=== PATIENT | male | born 1945 | race Caucasian/White ===

== ENCOUNTER → 2020-08-30 14:37 | Outpatient (BNVA) | payer MEDICARE, OTHER, SELFPAY | PROVIDERS: Family Provider Family Medicine; PCP Family Medicine; Visit Provider Internal Medicine | DX: R53.83 Other fatigue (principal); I10 Essential (primary) hypertension; E66.9 Obesity, unspecified; R53.1 Weakness; Z79.899 Other long term (current) drug therapy | CPT/HCPCS: 80053; 80061; 82607; 82746; 83036; 84443; 85025; G0103 ==

== ENCOUNTER 2020-09-03 01:01 | Observation (INO) | payer MEDICARE, OTHER, SELFPAY ==
[2020-09-03] VITALS (18 sets, daily range): BP systolic 148–243; BP diastolic 56–103; PULSE 55–88; RESP 15–24; TEMP 36.3–37; O2SAT 93–98; BMI 35.5
--- NOTE | 2020-09-03 01:19 | XRR_ITS ---
PROCEDURE INFORMATION: Exam: XR Chest, 1 View Exam date and time: 09/03/2020 1:42 AM Age: 75 years old Clinical indication: Other: HTN crisis TECHNIQUE: Imaging protocol: XR of the chest Views: 1 view. COMPARISON: No relevant prior studies available. FINDINGS: Lungs: Unremarkable. No consolidation. Pleural space: No pneumothorax or suggestion of pleural fluid. Heart/Mediastinum: Mild cardiomegaly. Vasculature: Aortic elongation. Bones/joints: No suggestion of acute bony disease. XR/XR chest 1V portable [id number] IMPRESSION: No acute findings. Mild cardiomegaly.
--- NOTE | 2020-09-03 01:19 | CTR_ITS ---
PROCEDURE INFORMATION: Exam: CT Head Without Contrast Exam date and time: 09/03/2020 1:42 AM Age: 75 years old Clinical indication: Other: TIA s/s one week ago TECHNIQUE: Imaging protocol: Computed tomography of the head without contrast. Radiation optimization: All CT scans at this facility use at least one of these dose optimization techniques: automated exposure control; mA and/or kV adjustment per patient size (includes targeted exams where dose is matched to clinical indication); or iterative reconstruction. COMPARISON: No relevant prior studies available. RADIATION DOSE METRICS: Total DLP (mGy-cm): 743.27 FINDINGS: Brain: No apparent abnormal density in the brain. No enlargement of the supratentorial subarachnoid spaces. No hemorrhage. Cerebral ventricles: Magna cisterna magna. Minimal prominence of the 4th ventricle. Mild enlargement of the 3rd and lateral ventricles. Bones/joints: Unremarkable. No acute fracture. Paranasal sinuses: Visualized sinuses unremarkable. Mastoid air cells: Visualized mastoids unremarkable. Vasculature: Arterial calcifications. Soft tissues: Unremarkable. CT/CT head wo con* [id number] IMPRESSION: No acute findings. Radiation Dose CTDIVOL = (mGy): DLP = 743.27 (mGy-cm)
--- NOTE | 2020-09-03 01:23 | W.ED.GENADLT ---
Documented by User: MIRA Lyman 09/03/20 01:25 HPI - General Adult General: Chief complaint: General Medical Stated complaint: high blood pressure Time Seen by Provider: 09/03/20 01:19 History of Present Illness: HPI narrative: Patient comes in complaining about hypertension. 76 went to bed he just 1 feel good decide check his blood pressure because Dr. Acevedo raise his blood pressure medicine at 100 mg losartan daily. His blood pressure is up about 240/104. Had a TIA possibly week ago had some right facial droop and also has a limp now he states. Said he did not feel poorly. Had some lab work done by Dr. Acevedo. Reviewing that shows that his sugar was 248 on a nonfasting sample. TSH slightly up. Patient denies chest pain shortness of breath. TIAsymptoms have improved. He is scheduled for an MRI. MD complaint: Hypertension Onset (ago): day(s) Associated symptoms: Deny chest pain, dyspnea, headache(s), nausea, rash or vomiting Review of Systems Const: Denies: fever(s), chills or body aches Eyes: Denies: change in vision or blurry vision ENMT: Denies: throat pain or nasal congestion Card: Reports: other (Increased blood pressure not coming down new medicine); Denies: chest pain or dyspnea on exertion Resp: Denies: dyspnea, productive cough or non-productive cough GI: Denies: abdominal pain, nausea or vomiting : Denies: difficulty urinating Musc: Denies: extremity pain Skin/Breast: Denies: rash Neuro: Reports: difficulty walking and difficulty communicating thoughts; Denies: headache(s) Psych: Denies: anxiety or depression Holden/Lymph: Denies: easy bruising PFSH ED PFSH: Family History (Updated 08/30/20 @ 11:[address]) Grandmother Cancer Diabetes Brother Diabetes Father Heart disease Mother Heart disease Social History (Updated 08/30/20 @ 11:[address]) Smoking and tobacco status: former smoker Alcohol intake: current Alcohol intake frequency: holidays/special occasions only Marital status: Number of children: 2 service: Yes History of recent travel: No Physical Exam Const: COMMON NORMALS: no acute distress, average body habitus and patient oriented x3 HENMT: COMMON NORMALS: normocephalic HEAD & SCALP: normal to inspection and normocephalic FACE & SINUS: normal facial exam Eye: COMMON NORMALS: conjunctivae normal GENERAL EYE: appearance normal, both eyes and all related structures CONJUNCTIVA: Yes conjunctivae normal Neck/C-Spine: COMMON NORMALS: no JVD Chest: COMMONS NORMALS: normal inspection of the chest Resp: COMMON NORMALS: normal respiratory effort and clear to auscultation bilaterally AUSCULTATION: clear to auscultation bilaterally Cardio: COMMON NORMALS: no JVD, regular rate and regular rhythm RATE: regular rate RHYTHM: regular rhythm GI: COMMON NORMALS: Normal to inspection, nondistended, normoactive bowel sounds present Extremity: COMMON NORMALS: normal to inspection and full ROM Neuro: COMMON NORMALS: patient oriented x3 Course Vital Signs: Vital signs: Vital Signs Temperature 97.3 F L 09/03/20 01:05 Pulse Rate 58 L 09/03/20 04:30 Respiratory Rate 17 09/03/20 04:30 Blood Pressure 178/86 09/03/20 04:30 Pulse Oximetry 97 09/03/20 04:30 MDM - General Adult Lab Data: Labs: Lab Results 09/03/20 09/03/20 09/03/20 Range/Units 01:22 01:22 01:22 WBC 9.0 (4.0-10.0) 10^3/ uL RBC 4.96 (4.1-5.3) 10^6/u L Hgb 14.1 (11.7-16.6) g/dL Hct 43.8 (42.0-52.0) % MCV 88.3 (80-94) fL MCH 28.4 (28.0-34.0) pg MCHC 32.2 (30.0-36.0) g/dL RDW 12.8 (12.1-15.1) % Plt Count 295 (130-400) 10^3/c mm MPV 8.6 (7.4-10.4) fL Neut % (Auto) 57.7 % Lymph % (Auto) 31.8 % Owsley % (Auto) 7.5 % Eos % (Auto) 1.9 % Baso % (Auto) 0.8 % Neut # (Auto) 5.18 (1.8-7.7) 10^3/u L Lymph # (Auto) 2.9 (0.8-4.8) 10^3/u L Owsley # (Auto) 0.7 (0.2-0.9) 10^3/u L Eos # (Auto) 0.2 (0.0-0.8) 10^3/u L Baso # (Auto) 0.1 (0.0-0.1) 10^3/u L Nucleated RBC % (a uto) 0 % Nucleated RBCs # 0.0 /100WBC PT 14.10 (12.1-14.9) SECO NDS INR 1.05 (0.8-1.2) Sodium 133 L (136-145) mmol/L Potassium 4.2 (3.5-5.1) mmol/L Chloride 97 L (98-107) mmol/L Carbon Dioxide 26 (22-29) mmol/L Anion Gap 14.2 (5-19) BUN 24 H (8-23) mg/dL Creatinine 1.2 (0.7-1.2) mg/dL GFR Calculation Not Reportable Glucose 220 H (65-115) mg/dL POC Glucose (70-110) mg/dL Estimat Average Gl ucose Hemoglobin A1c (4.0-6.0) % Calculated Osmolal ity 287 (285-295) mOsm/k g Calcium 9.7 (8.5-10.5) mg/dL Magnesium 2.2 (1.7-2.3) mg/dL Total Bilirubin 0.3 (0.15-1.2) mg/dL AST 15 (0-40) U/L ALT 17 (0-41) U/L Alkaline Phosphata se 88 (40-130) IU/L Troponin T Baselin e (0-15) ng/L Troponin T 120 Min [place] (0-15) ng/L Delta Troponin T (0-10) ABS# NT-Pro-B Natriuret Pep 28 (0-125) pg/mL Total Protein 7.5 (6.6-8.7) g/dL Albumin 4.2 (3.5-5.2) g/dL Globulin 3.3 (1.3-4.6) g/dL Urine Color (Yellow) Urine Appearance (CLEAR) Urine pH (5-7) Ur Specific Gravit y (1.005-1.030) Urine Protein (Negative) Urine Glucose (UA) (Normal) Urine Ketones (Negative) Urine Blood (Negative) Urine Nitrate (Negative) Urine Bilirubin (Negative) Urine Urobilinogen (Negative) mg/dL Ur Leukocyte Ivelisse ase (Negative) 09/03/20 09/03/20 09/03/20 Range/Units 01:22 01:22 01:29 WBC (4.0-10.0) 10^3/ uL RBC (4.1-5.3) 10^6/u L Hgb (11.7-16.6) g/dL Hct (42.0-52.0) % MCV (80-94) fL MCH (28.0-34.0) pg MCHC (30.0-36.0) g/dL RDW (12.1-15.1) % Plt Count (130-400) 10^3/c mm MPV (7.4-10.4) fL Neut % (Auto) % Lymph % (Auto) % Owsley % (Auto) % Eos % (Auto) % Baso % (Auto) % Neut # (Auto) (1.8-7.7) 10^3/u L Lymph # (Auto) (0.8-4.8) 10^3/u L Owsley # (Auto) (0.2-0.9) 10^3/u L Eos # (Auto) (0.0-0.8) 10^3/u L Baso # (Auto) (0.0-0.1) 10^3/u L Nucleated RBC % (a uto) % Nucleated RBCs # /100WBC PT (12.1-14.9) SECO NDS INR (0.8-1.2) Sodium (136-145) mmol/L Potassium (3.5-5.1) mmol/L Chloride (98-107) mmol/L Carbon Dioxide (22-29) mmol/L Anion Gap (5-19) BUN (8-23) mg/dL Creatinine (0.7-1.2) mg/dL GFR Calculation Glucose (65-115) mg/dL POC Glucose 193 H (70-110) mg/dL Estimat Average Gl ucose 189 Hemoglobin A1c 8.2 H (4.0-6.0) % Calculated Osmolal ity (285-295) mOsm/k g Calcium (8.5-10.5) mg/dL Magnesium (1.7-2.3) mg/dL Total Bilirubin (0.15-1.2) mg/dL AST (0-40) U/L ALT (0-41) U/L Alkaline Phosphata se (40-130) IU/L Troponin T Baselin e 24 H (0-15) ng/L Troponin T 120 Min [place] (0-15) ng/L Delta Troponin T (0-10) ABS# NT-Pro-B Natriuret Pep (0-125) pg/mL Total Protein (6.6-8.7) g/dL Albumin (3.5-5.2) g/dL Globulin (1.3-4.6) g/dL Urine Color (Yellow) Urine Appearance (CLEAR) Urine pH (5-7) Ur Specific Gravit y (1.005-1.030) Urine Protein (Negative) Urine Glucose (UA) (Normal) Urine Ketones (Negative) Urine Blood (Negative) Urine Nitrate (Negative) Urine Bilirubin (Negative) Urine Urobilinogen (Negative) mg/dL Ur Leukocyte Ivelisse ase (Negative) 09/03/20 09/03/20 Range/Units 02:00 03:28 WBC (4.0-10.0) 10^3/ uL RBC (4.1-5.3) 10^6/u L Hgb (11.7-16.6) g/dL Hct (42.0-52.0) % MCV (80-94) fL MCH (28.0-34.0) pg MCHC (30.0-36.0) g/dL RDW (12.1-15.1) % Plt Count (130-400) 10^3/c mm MPV (7.4-10.4) fL Neut % (Auto) % Lymph % (Auto) % Owsley % (Auto) % Eos % (Auto) % Baso % (Auto) % Neut # (Auto) (1.8-7.7) 10^3/u L Lymph # (Auto) (0.8-4.8) 10^3/u L [place]wsley # (Auto) (0.2-0.9) 10^3/u L Eos # (Auto) (0.0-0.8) 10^3/u L Baso # (Auto) (0.0-0.1) 10^3/u L Nucleated RBC % (a uto) % Nucleated RBCs # /100WBC PT (12.1-14.9) SECO NDS INR (0.8-1.2) Sodium (136-145) mmol/L Potassium (3.5-5.1) mmol/L Chloride (98-107) mmol/L Carbon Dioxide (22-29) mmol/L Anion Gap (5-19) BUN (8-23) mg/dL Creatinine (0.7-1.2) mg/dL GFR Calculation Glucose (65-115) mg/dL POC Glucose (70-110) mg/dL Estimat Average Gl ucose Hemoglobin A1c (4.0-6.0) % Calculated Osmolal ity (285-295) mOsm/k g Calcium (8.5-10.5) mg/dL Magnesium (1.7-2.3) mg/dL Total Bilirubin (0.15-1.2) mg/dL AST (0-40) U/L ALT (0-41) U/L Alkaline Phosphata se (40-130) IU/L Troponin T Baselin e (0-15) ng/L Troponin T 120 Min [place] 22.40 H (0-15) ng/L Delta Troponin T -1.60 L (0-10) ABS# NT-Pro-B Natriuret Pep (0-125) pg/mL Total Protein (6.6-8.7) g/dL Albumin (3.5-5.2) g/dL Globulin (1.3-4.6) g/dL Urine Color Yellow (Yellow) Urine Appearance Clear (CLEAR) Urine pH 5 (5-7) Ur Specific Gravit y 1.015 (1.005-1.030) Urine Protein Neg (Negative) Urine Glucose (UA) 2+ (Normal) Urine Ketones Negative (Negative) Urine Blood Neg (Negative) Urine Nitrate Negative (Negative) Urine Bilirubin Neg (Negative) Urine Urobilinogen Norm (Negative) mg/dL Ur Leukocyte Ivelisse ase Negative (Negative) Discharge Plan Discharge Patient Disposition: Placed in Observation Clinical Impression: Right sided weakness Hypertension Qualifiers: Hypertension type: unspecified Qualified Code(s): I10 - Essential (primary) hypertension Coding Level of Care Code ED [facility] for Chg Fwd Exam Comprehensive Documented by User: Connor Guerra, 09/03/20 04:55 HPI - General Adult General: Chief complaint: General Medical Stated complaint: high blood pressure Time Seen by Provider: 09/03/20 01:19 PFS ED PFSH: Family History (Updated 08/30/20 @ 11:54 by DINORA Ureña) Grandmother Cancer Diabetes Brother Diabetes Father Heart disease Mother Heart disease Social History (Updated 08/30/20 @ 11:55 by DINORA Ureña) Smoking and tobacco status: former smoker Alcohol intake: current Alcohol intake frequency: holidays/special occasions only Marital status: Number of children: 2 service: Yes History of recent travel: No Course Consultations: Consultation #1: tash Time: 04:54 Vital Signs: Vital signs: Vital Signs Temperature 97.3 F L 09/03/20 01:05 Pulse Rate 58 L 09/03/20 04:30 Respiratory Rate 17 09/03/20 04:30 Blood Pressure 178/86 09/03/20 04:30 Pulse Oximetry 97 09/03/20 04:30 MDM - General Adult MDM Narrative: Medical decision making narrative: 75-year-old gentleman received in checkout from MIRA Bright. I have seen the patient as well, and agree with his history, evaluation, and work-up. This patient has what appears to be mild right lower extremity weakness with a foot slap/foot drop, mild right sided facial droop following an episode last week. He is scheduled for an MRI next week. He has a new diagnosis of hypertension, and is up to 100 mg of losartan daily for the past 2 days. He had a hypertensive episode at home. His blood pressure has been significantly elevated here, requiring labetalol as well as amlodipine to improve. Currently blood pressure 178/84, heart rate 62, saturations 96% on room air. His symptoms are a week old plus. He has no increase in symptoms. His CT head does not show an acute infarct. He has had no prior work-up for CVA in the past. Interestingly, his hemoglobin A1c is 8.2 with no prior history of diabetes as well. He will be observed, CT angio of the head and neck, and control of his blood pressure. Any further testing needed. Lab Data: Labs: Lab Results 09/03/20 09/03/20 09/03/20 Range/Units 01:22 01:22 01:22 WBC 9.0 (4.0-10.0) 10^3/ uL RBC 4.96 (4.1-5.3) 10^6/u L Hgb 14.1 (11.7-16.6) g/dL Hct 43.8 (42.0-52.0) % MCV 88.3 (80-94) fL MCH 28.4 (28.0-34.0) pg MCHC 32.2 (30.0-36.0) g/dL RDW 12.8 (12.1-15.1) % Plt Count 295 (130-400) 10^3/c mm MPV 8.6 (7.4-10.4) fL Neut % (Auto) 57.7 % Lymph % (Auto) 31.8 % [place] % (Auto) 7.5 % Eos % (Auto) 1.9 % Baso % (Auto) 0.8 % Neut # (Auto) 5.18 (1.8-7.7) 10^3/u L Lymph # (Auto) 2.9 (0.8-4.8) 10^3/u L [place] # (Auto) 0.7 (0.2-0.9) 10^3/u L Eos # (Auto) 0.2 (0.0-0.8) 10^3/u L Baso # (Auto) 0.1 (0.0-0.1) 10^3/u L Nucleated RBC % (a uto) 0 % Nucleated RBCs # 0.0 /100WBC PT 14.10 (12.1-14.9) SECO NDS INR 1.05 (0.8-1.2) Sodium 133 L (136-145) mmol/L Potassium 4.2 (3.5-5.1) mmol/L Chloride 97 L (98-107) mmol/L Carbon Dioxide 26 (22-29) mmol/L Anion Gap 14.2 (5-19) BUN 24 H (8-23) mg/dL Creatinine 1.2 (0.7-1.2) mg/dL GFR Calculation Not Reportable Glucose 220 H (65-115) mg/dL POC Glucose (70-110) mg/dL Estimat Average Gl ucose Hemoglobin A1c (4.0-6.0) % Calculated Osmolal ity 287 (285-295) mOsm/k g Calcium 9.7 (8.5-10.5) mg/dL Magnesium 2.2 (1.7-2.3) mg/dL Total Bilirubin 0.3 (0.15-1.2) mg/dL AST 15 (0-40) U/L ALT 17 (0-41) U/L Alkaline Phosphata se 88 (40-130) IU/L Troponin T Baselin e (0-15) ng/L Troponin T 120 Min [place] (0-15) ng/L Delta Troponin T (0-10) ABS# NT-Pro-B Natriuret Pep 28 (0-125) pg/mL Total Protein 7.5 (6.6-8.7) g/dL Albumin 4.2 (3.5-5.2) g/dL Globulin 3.3 (1.3-4.6) g/dL Urine Color (Yellow) Urine Appearance (CLEAR) Urine pH (5-7) Ur Specific Gravit y (1.005-1.030) Urine Protein (Negative) Urine Glucose (UA) (Normal) Urine Ketones (Negative) Urine Blood (Negative) Urine Nitrate (Negative) Urine Bilirubin (Negative) Urine Urobilinogen (Negative) mg/dL Ur Leukocyte Ivelisse ase (Negative) 09/03/20 09/03/20 09/03/20 Range/Units 01:22 01:22 01:29 WBC (4.0-10.0) 10^3/ uL RBC (4.1-5.3) 10^6/u L Hgb (11.7-16.6) g/dL Hct (42.0-52.0) % MCV (80-94) fL MCH (28.0-34.0) pg MCHC (30.0-36.0) g/dL RDW (12.1-15.1) % Plt Count (130-400) 10^3/c mm MPV (7.4-10.4) fL Neut % (Auto) % Lymph % (Auto) % [place] % (Auto) % Eos % (Auto) % Baso % (Auto) % Neut # (Auto) (1.8-7.7) 10^3/u L Lymph # (Auto) (0.8-4.8) 10^3/u L [place] # (Auto) (0.2-0.9) 10^3/u L Eos # (Auto) (0.0-0.8) 10^3/u L Baso # (Auto) (0.0-0.1) 10^3/u L Nucleated RBC % (a uto) % Nucleated RBCs # /100WBC PT (12.1-14.9) SECO NDS INR (0.8-1.2) Sodium (136-145) mmol/L Potassium (3.5-5.1) mmol/L Chloride (98-107) mmol/L Carbon Dioxide (22-29) mmol/L Anion Gap (5-19) BUN (8-23) mg/dL Creatinine (0.7-1.2) mg/dL GFR Calculation Glucose (65-115) mg/dL POC Glucose 193 H (70-110) mg/dL Estimat Average Gl ucose 189 Hemoglobin A1c 8.2 H (4.0-6.0) % Calculated Osmolal ity (285-295) mOsm/k g Calcium (8.5-10.5) mg/dL Magnesium (1.7-2.3) mg/dL Total Bilirubin (0.15-1.2) mg/dL AST (0-40) U/L ALT (0-41) U/L Alkaline Phosphata se (40-130) IU/L Troponin T Baselin e 24 H (0-15) ng/L Troponin T 120 Min [place] (0-15) ng/L Delta Troponin T (0-10) ABS# NT-Pro-B Natriuret Pep (0-125) pg/mL Total Protein (6.6-8.7) g/dL Albumin (3.5-5.2) g/dL Globulin (1.3-4.6) g/dL Urine Color (Yellow) Urine Appearance (CLEAR) Urine pH (5-7) Ur Specific Gravit y (1.005-1.030) Urine Protein (Negative) Urine Glucose (UA) (Normal) Urine Ketones (Negative) Urine Blood (Negative) Urine Nitrate (Negative) Urine Bilirubin (Negative) Urine Urobilinogen (Negative) mg/dL Ur Leukocyte Ivelisse ase (Negative) 09/03/20 09/03/20 Range/Units 02:00 03:28 WBC (4.0-10.0) 10^3/ uL RBC (4.1-5.3) 10^6/u L Hgb (11.7-16.6) g/dL Hct (42.0-52.0) % MCV (80-94) fL MCH (28.0-34.0) pg MCHC (30.0-36.0) g/dL RDW (12.1-15.1) % Plt Count (130-400) 10^3/c mm MPV (7.4-10.4) fL Neut % (Auto) % Lymph % (Auto) % [place] % (Auto) % Eos % (Auto) % Baso % (Auto) % Neut # (Auto) (1.8-7.7) 10^3/u L Lymph # (Auto) (0.8-4.8) 10^3/u L [place] # (Auto) (0.2-0.9) 10^3/u L Eos # (Auto) (0.0-0.8) 10^3/u L Baso # (Auto) (0.0-0.1) 10^3/u L Nucleated RBC % (a uto) % Nucleated RBCs # /100WBC PT (12.1-14.9) SECO NDS INR (0.8-1.2) Sodium (136-145) mmol/L Potassium (3.5-5.1) mmol/L Chloride (98-107) mmol/L Carbon Dioxide (22-29) mmol/L Anion Gap (5-19) BUN (8-23) mg/dL Creatinine (0.7-1.2) mg/dL GFR Calculation Glucose (65-115) mg/dL POC Glucose (70-110) mg/dL Estimat Average Gl ucose Hemoglobin A1c (4.0-6.0) % Calculated Osmolal ity (285-295) mOsm/k g Calcium (8.5-10.5) mg/dL Magnesium (1.7-2.3) mg/dL Total Bilirubin (0.15-1.2) mg/dL AST (0-40) U/L ALT (0-41) U/L Alkaline Phosphata se (40-130) IU/L Troponin T Baselin e (0-15) ng/L Troponin T 120 Min [place] 22.40 H (0-15) ng/L Delta Troponin T -1.60 L (0-10) ABS# NT-Pro-B Natriuret Pep (0-125) pg/mL Total Protein (6.6-8.7) g/dL Albumin (3.5-5.2) g/dL Globulin (1.3-4.6) g/dL Urine Color Yellow (Yellow) Urine Appearance Clear (CLEAR) Urine pH 5 (5-7) Ur Specific Gravit y 1.015 (1.005-1.030) Urine Protein Neg (Negative) Urine Glucose (UA) 2+ (Normal) Urine Ketones Negative (Negative) Urine Blood Neg (Negative) Urine Nitrate Negative (Negative) Urine Bilirubin Neg (Negative) Urine Urobilinogen Norm (Negative) mg/dL Ur Leukocyte Ivelisse ase Negative (Negative) Discharge Plan Discharge Patient Disposition: Placed in Observation Clinical Impression: Right sided weakness Hypertension Qualifiers: Hypertension type: unspecified Qualified Code(s): I10 - Essential (primary) hypertension Coding Level of Care Code ED [facility] for [facility] Fwd Exam Comprehensive
[2020-09-03] MEDS: amlodipine 10 mg Tablet PO ×2 (01:31→08:09)
[2020-09-03 01:33] LABS: Glucose Point of Care 193 mg/dL (70-110)
[2020-09-03 01:33] LABS: Basophils # 0.1 10^3/uL (0.0-0.1); Basophils % 0.8 %; Eosinophils # 0.2 10^3/uL (0.0-0.8); Eosinophils % 1.9 %; Hematocrit 43.8 % (42.0-52.0); Hemoglobin 14.1 g/dL (11.7-16.6); Lymphocytes # 2.9 10^3/uL (0.8-4.8); Lymphocytes % 31.8 %; Mean Corpuscular HGB Conc 32.2 g/dL (30.0-36.0); Mean Corpuscular Hemoglobin 28.4 pg (28.0-34.0); Mean Corpuscular Volume 88.3 fL (80-94); Mean Platelet Volume 8.6 fL (7.4-10.4); Monocytes # 0.7 10^3/uL (0.2-0.9); Monocytes % 7.5 %; Neutrophils # 5.18 10^3/uL (1.8-7.7); Neutrophils % 57.7 %; Nucleated Red Blood Cells % 0 %; Platelet Count 295 10^3/cmm (130-400); Red Blood Count 4.96 10^6/uL (4.1-5.3); Red Cell Distribution Width 12.8 % (12.1-15.1)
[2020-09-03] MEDS: labetalol 5 mg/mL SDV 20mL 20 MG IVP (01:34)
[2020-09-03 01:38] LABS: INR 1.05 (0.8-1.2)
[2020-09-03] MEDS: sodium chloride 0.9% 1,000 ML 75 ML IV (01:38)
[2020-09-03 01:46] LABS: Troponin(5th) Baseline 24 ng/L (0-15)
[2020-09-03 01:55] LABS: Alanine Aminotransferase 17 U/L (0-41); Albumin Level 4.2 g/dL (3.5-5.2); Alkaline Phosphatase 88 IU/L (40-130); Anion Gap 14.2 (5-19); Aspartate Amino Transferase 15 U/L (0-40); Blood Urea Nitrogen 24 mg/dL (8-23); Calcium 9.7 mg/dL (8.5-10.5); Carbon Dioxide 26 mmol/L (22-29); Chloride 97 mmol/L (98-107); Creatinine Clr Calc Pharmacy 70.9133; Globulin 3.3 g/dL (1.3-4.6); Glucose 220 mg/dL (65-115); Magnesium 2.2 mg/dL (1.7-2.3); NT Pro B Type Natriuretic Pept 28 pg/mL (0-125); Osmolality Calculated 287 mOsm/kg (285-295); Potassium 4.2 mmol/L (3.5-5.1); Sodium 133 mmol/L (136-145); Total Bilirubin 0.3 mg/dL (0.15-1.2); Total Protein 7.5 g/dL (6.6-8.7)
[2020-09-03 02:19] LABS: Add Urine Microscopic? NO
[2020-09-03 02:21] LABS: Bilirubin Urine Neg (Negative); Blood Urine Neg (Negative); Glucose Urine UA 2+ (Normal); Ketones Urine Negative (Negative); Leukocyte Esterase Urine Negative (Negative); Nitrate Urine Negative (Negative); Protein Urine Neg (Negative); Specific Gravity, Urine 1.015 (1.005-1.030); Urine Appearance Clear (CLEAR); Urine Color Yellow (Yellow); Urobilinogen Urine Norm (Negative); pH Urine 5 (5-7)
[2020-09-03 03:01] LABS: Estmated Average Glucose 189; Hemoglobin A1C 8.2 % (4.0-6.0)
--- NOTE | 2020-09-03 04:01 | ECG_ITS ---
[facility] Test Date: 2020-09-03 Pat Name: Demond Pastrana Department: Room: Gender: Male Risk Specialist: : 1945 Requested By: Rick Evans Order Number: [id number] Calix MD: Caitlyn Rico M.D. Measurements Intervals [place] Rate: 56 P: 10 WV: 162 QRS: -21 QRSD: 91 T: 89 QT: 399 QTc: 386 Interpretive Statements SINUS BRADYCARDIA BORDERLINE LEFT AXIS DEVIATION [QRS AXIS < -20] LOW QRS VOLTAGE IN PRECORDIAL LEADS [QRS DEFLECTION < 1.0 mV IN CHEST LEADS] NONSPECIFIC T-WAVE ABNORMALITY No previous ECG available for comparison Electronically Signed On 09-04-2020 21:15:12 [employer] by Caitlyn Rico M.D. [email or web address]
--- NOTE | 2020-09-03 04:26 | P.HP_ITS ---
Providers/Chief Complaint Primary Care Provider: Juanjose Alvarado MD Chief Complaint: high blood pressure History of Present Illness Demond Pastrana is a 75 year old male who does not have significant past medical history presented today for high blood pressure. Patient is stating that last Friday he started experiencing right-sided facial droop, right arm numbness and right lower extremity weakness for which he saw Dr. Acevedo who diagnosed him with TIA started on high-dose aspirin and started losartan for blood pressure. Initially he was taking 50 mg of losartan which was increased to 100 mg because of hypertensive episodes, lowest blood pressure at home was 150s millimeters mercury, today his systolic blood pressure was well above 1 200mmhg?where he presented to the hospital. Patient is stating that his right-sided facial droop and right arm numbness has improved but he is still experiencing some gait ataxia. No aspiration or choking on food, no fever shortness of breath, chest pain, fever. He does not smoke or drink alcohol on daily basis. He plays golf and enjoys daily activities but does not do any vigorous/physical activities. Diagnosis in the ER revealed hypertensive urgency, 243/103 which improved with 20 mg of labetalol and 10 mg of amlodipine, at the time my evaluation 178/86 blood pressure. Negative delta troponin, abnormal hemoglobin A1c, TSH, lipid profile. Review of Systems Const: Reports: fatigue; Denies: fever(s) Eyes: Denies: change in vision ENMT: Denies: throat pain Card: Denies: chest pain Resp: Denies: dyspnea GI: Denies: abdominal pain : Denies: flank pain Musc: Reports: muscle cramps and muscle weakness; Denies: neck pain Skin/Breast: Denies: rash Neuro: Reports: weakness in extremities and difficulty walking; Denies: headache(s) Psych: Denies: anxiety Endo: Denies: polyuria Holden/Lymph: Denies: easy bruising All/Imm: Denies: urticaria Medications/Allergies Home Medications Medication Instructions Recorded Confirmed Last Taken Type aspirin 325 mg tablet 325 mg PO DAILY 08/30/20 08/30/20 Unknown History ibuprofen 200 mg tablet 200 mg PO .prn PRN tab 08/30/20 08/30/20 Unknown History losartan 50 mg tablet 100 mg PO DAILY #90 tab 09/01/20 Unknown Rx Allergies Allergy/AdvReac Type Severity Reaction Status Date / Time succinylcholine Allergy Severe drained Verified 08/30/20 11:49 everything out of his muscles PFSH Acute PFSH: Medical History (Updated 09/03/20 @ 05:03 by Idania Arellano MD) Hernia Surgical History (Updated 09/03/20 @ 05:03 by Idania Arellano MD) History of hip replacement [place] teeth extracted Family History (Updated 08/30/20 @ 11:54 by DINORA Ureña) Grandmother Cancer Diabetes Brother Diabetes Father Heart disease Mother Heart disease Social History (Updated 08/30/20 @ 11:55 by DINORA Ureña) Smoking and tobacco status: former smoker Alcohol intake: current Alcohol intake frequency: holidays/special occasions only Marital status: Number of children: 2 service: Yes History of recent travel: No Vitals/I&O/Wt Last Vital Signs Temp 97.3 F L 09/03/20 01:05 Pulse 58 L 09/03/20 04:00 Resp 22 H 09/03/20 04:00 BP 158/73 09/03/20 04:00 Pulse Ox 96 09/03/20 04:00 Weight last 48 hrs Weight 115.666 kg Physical Exam Narrative: EXAM NARRATIVE: Very pleasant elderly male Appears stated age, morbidly obese NIH 2 Right-sided facial droop, gait ataxia Muscle strength 3/5 lower extremities, ankle joint, hip extension, handgrip No cerebellar signs Awake alert oriented x3 GCS 15, speech is normal Appropriate mood and affect S1, S2 sinus rhythm no signs of heart failure Abdomen soft distended bowel sound present Bilateral breath sounds without acute respiratory distress no adventitious rhonchi or audible wheezing Low symmetry no edema gangrene ulcer visceral obesity EOMI, PERRLA Data : 09/03/20 01:22 09/03/20 01:22 A&P Assessment and plan (1) Obesity: Status: Acute (2) Fatigue: Status: Acute (3) Right sided weakness: Status: Acute (4) Hypertension: Status: Acute Qualifiers: Hypertension type: unspecified Qualified Code(s): I10 - Essential (primary) hypertension (5) Hypertensive urgency: Status: Acute (6) New onset type 2 diabetes mellitus: Status: Acute (7) TIA (transient ischemic attack): Status: Acute (8) Morbid obesity: Status: Acute (9) Metabolic syndrome X: Status: Acute Additional A&P Information Metabolic X syndrome Morbid obesity, hypertension, diabetes, abnormal TSH, visceral obesity Abnormal TSH, hemoglobin A1c 8.5, hypertensive urgency Patient counseled on lifestyle modification For new onset diabetes I will start him on insulin in the hospital, at the time of discharge he will need Metformin and GLP-1 analog ideally to help him lose weight Hypertensive urgency responded well to labetalol amlodipine in the ER, I would add hydrochlorothiazide and amlodipine along with losartan for grade 3 hypertension TIA Continue aspirin high-dose, will add Plavix and high-dose statins We will request CT head and neck and MRI in the morning Full code Consistent carb diet DVT prophylaxis Attestations Medical Necessity Statement*: Anticipating discharge in less than 48 hours currently need work-up for TIA, need adjustment of medication for hypertension and newly diagnosed type 2 diabetes Time Spent in Patient Care: (>than 50% of time spent in counselling and/or direct pt care on unit) . 45mins Coding Level of Care Code Acute Devulcanizer Loader for Delia Fwd Diagnoses Obesity E66.9 Fatigue R53.83 Right sided weakness R53.1 Hypertension I10 Hypertension type: unspecified Hypertensive urgency I16.0 New onset type 2 diabetes mellitus E11.9 TIA (transient ischemic attack) G45.9 Morbid obesity E66.01 Metabolic syndrome X E88.81
--- NOTE | 2020-09-03 04:28 | CTR_ITS ---
PROCEDURE INFORMATION: Exam: CT Angiography Head With Contrast Exam date and time: 09/03/2020 4:54 AM Age: 75 years old Clinical indication: Weakness; Additional info: Right sided weakness TECHNIQUE: Imaging protocol: Computed tomography angiography of the head with intravenous contrast. 3D rendering (Not supervised by radiologist): MIP and/or 3D reconstructed images were created by the technologist. Radiation optimization: All CT scans at this facility use at least one of these dose optimization techniques: automated exposure control; mA and/or kV adjustment per patient size (includes targeted exams where dose is matched to clinical indication); or iterative reconstruction. Contrast material: VISI 320; Contrast volume: 95 ml; Contrast route: INTRAVENOUS (IV); COMPARISON: CT head wo con* [id number] 09/03/2020 1:48 AM RADIATION DOSE METRICS: Total DLP (mGy-cm): 2754.53 FINDINGS: ANTERIOR CIRCULATION: Right internal carotid artery: Unremarkable. Intracranial segment patent with no significant stenosis. No aneurysm. Right middle cerebral artery: Unremarkable. No occlusion or significant stenosis. No aneurysm. Right anterior cerebral artery: Hypoplastic A1 segment of the right anterior cerebral artery. No stenosis or occlusion of this artery. No aneurysm. Left internal carotid artery: Unremarkable. Intracranial segment patent with no significant stenosis. No aneurysm. Left middle cerebral artery: Unremarkable. No occlusion or significant stenosis. No aneurysm. Left anterior cerebral artery: Unremarkable. No occlusion or significant stenosis. No aneurysm. POSTERIOR CIRCULATION: Right vertebral artery: Unremarkable. No occlusion or significant stenosis. No aneurysm. Left vertebral artery: Unremarkable. No occlusion or significant stenosis. No aneurysm. Basilar artery: Unremarkable. No occlusion or significant stenosis. No aneurysm. Right posterior cerebral artery: Right posterior communicating artery associated with absence of the P1 segment of the right PANTOGRAPH SETTER. No occlusion of or stenosis in the right PANTOGRAPH SETTER. No aneurysm. Left posterior cerebral artery: Moderate stenosis in the P1 segment of the left posterior cerebral artery. No significant stenosis elsewhere in this artery. No aneurysm. Veins: Major venous sinuses patent. Brain: No abnormal enhancement in the brain. Magna cisterna magna again evident. Cerebral ventricles: Continued prominence/dilatation of the ventricles. Mastoid air cells: Mastoids still clear. Paranasal sinuses: Interval inclusion of the area of the mucous retention cyst in the inferior right maxillary sinus and the minimal mucosal thickening in each inferior maxillary sinus. Still no air-fluid levels in the sinuses. Bones/joints: Unremarkable. No acute fracture. Soft tissues: Unremarkable. IMPRESSION: 1. 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 No significant stenosis in or occlusion of the other major head arteries. 2. Chronic sinus disease now visible as detailed above. PROCEDURE INFORMATION: Exam: CT Angiography Neck With Contrast Exam date and time: 09/03/2020 4:54 AM Age: 75 years old Clinical indication: Weakness; Additional info: Right sided weakness TECHNIQUE: Imaging protocol: Computed tomography angiography of the neck with intravenous contrast. 3D rendering (Not supervised by radiologist): MIP and/or 3D reconstructed images were created by the technologist. Radiation optimization: All CT scans at this facility use at least one of these dose optimization techniques: automated exposure control; mA and/or kV adjustment per patient size (includes targeted exams where dose is matched to clinical indication); or iterative reconstruction. Contrast material: VISI 320; Contrast volume: 95 ml; Contrast route: INTRAVENOUS (IV); COMPARISON: CT head wo con* [id number] 09/03/2020 1:48 AM RADIATION DOSE METRICS: Total DLP (mGy-cm): 2754.53 FINDINGS: Right common carotid artery: No stenosis. No dissection or occlusion. Right internal carotid artery: No stenosis of the extracranial segment. No dissection or occlusion. Right external carotid artery: Moderate stenosis of the very proximal right ECA. Right vertebral artery: No stenosis. No dissection or occlusion. Left common carotid artery: No stenosis. No dissection or occlusion. Left internal carotid artery: Minimal to mild stenosis of the origin of the left ICA. Left external carotid artery: [id number] stenosis of the proximal left ECA. Left vertebral artery: Suspicion of at least a moderate to marked stenosis of the origin of the left vertebral artery from the aortic arch. No stenosis elsewhere in this artery. Bones/joints: Degeneration of several discs and multiple facet joints in the cervical spine. No canal stenosis greater than the mild stenosis at C5-C6. Soft tissues: Mediastinal lipomatosis. No significant soft tissue swelling. Lymph nodes: Calcified nodes in the left hilum and AP window. Lungs: Calcified granuloma in the left upper lobe. CT/CT angio headne* [id number] IMPRESSION: 1. At least a moderate to marked stenosis of the origin of the left vertebral artery from the aortic arch. Other arterial findings detailed above. 2. Degenerative disease in the cervical spine. Other findings detailed above. REFERENCES: NASCET CRITERIA. The degree of internal carotid artery stenosis is based on NASCET criteria. Normal is no stenosis. Mild is less than 50% stenosis. Moderate is 50-69% stenosis. Severe is 70% to 99% stenosis. Total occlusion is no detectable patent lumen. Radiation Dose CTDIVOL = (mGy): DLP = 2754.53~2754.53 (mGy-cm)
[2020-09-03 05:11] LABS: Free T4 Free Thyroxine 1.05 ng/dL (0.82-1.77)
[2020-09-03] MEDS: iodixanol 320 mg/mL 100mL Btl IV (06:14)
[2020-09-03 06:41] LABS: Glucose Point of Care 199 mg/dL (70-110)
[2020-09-03 07:02] LABS: Chol HDL Ratio 4.58 mg/dL (1.0-5.00); Cholesterol 151 mg/dL (0-200); HDL Cholesterol 33 mg/dL (60-100); LDL Cholesterol Calculated 91 mg/dL (50-129); LDL HDL Ratio 2.76 RATIO (0.00-3.22); Triglycerides 135 mg/dL (0-150)
--- NOTE | 2020-09-03 07:19 | ECG_ITS ---
[facility] Test Date: 2020-09-03 Pat Name: Demond Pastrana Department: Room: 277 Gender: Male Seed Analyst: : 1945 Requested By: Rick Evans Order Number: [id number] Yogi MD: Caitlyn Rico M.D. Measurements Intervals Alvin Rate: 69 P: 54 CA: 165 QRS: -26 QRSD: 99 T: 68 QT: 384 QTc: 413 Interpretive Statements SINUS RHYTHM WITH FREQUENT VENTRICULAR PREMATURE COMPLEXES BORDERLINE LEFT AXIS DEVIATION [QRS AXIS < -20] LOW QRS VOLTAGE IN PRECORDIAL LEADS [QRS DEFLECTION < 1.0 mV IN CHEST LEADS] NONSPECIFIC T-WAVE ABNORMALITY Compared to ECG 09/03/2020 03:26:56 Ventricular premature complex(es) now present Sinus bradycardia no longer present T-wave abnormality still present Electronically Signed On 09-04-2020 21:12:59 ANDROID FRAMEWORK DEVELOPER by Caitlyn Rico M.D. [email or web address].[facility].[employer]/store/OM/[id number]
[2020-09-03] MEDS: atorvastatin 40 mg Tablet 80 MG PO (08:09)
[2020-09-03] MEDS: aspirin 325 mg Tablet PO (08:09)
[2020-09-03] MEDS: losartan 50 mg Tablet 100 MG PO (08:10)
[2020-09-03] MEDS: clopidogrel 75 mg Tablet PO (08:10)
[2020-09-03] MEDS: hydroCHLOROthiazide 25 mg Tablet 12.5 MG PO (08:10)
[2020-09-03 11:17] LABS: Glucose Point of Care 230 mg/dL (70-110)
--- NOTE | 2020-09-03 15:11 | PM.PN ---
Subjective Subjective: Interval history: Reports feeling better. Denies headache. Denies focal muscle weakness or sensory loss. Denies problems with gait or speech. No chest pain or palpitations. No nausea or vomiting. Medications: Reviewed: Yes Medication Review Details: Generic Name Dose Route Start Last Admin Trade Name Pancho PRN Reason Stop Dose Admin Amlodipine Besylat e 10 mg 09/03/20 09:00 09/03/20 08:09 Amlodipine 10 Mg Tablet PO 10 mg DAILY EDWARDO Administration Atorvastatin Calci um 80 mg 09/03/20 09:00 09/03/20 08:09 Atorvastatin 40 Mg Tablet PO 80 mg DAILY EDWARDO Administration Clopidogrel Bisulf ate 75 mg 09/03/20 09:00 09/03/20 08:10 Clopidogrel 75 M g Tablet PO 75 mg DAILY EDWARDO Administration Sodium Chloride 1,000 mls @ 75 ml s/hr 09/03/20 01:30 09/03/20 06:52 Sodium Chloride 0.9% IV 0 mls/hr .[id number] EDWARDO Infusion Insulin Aspart 0 unit 09/03/20 08:00 09/03/20 11:46 Insulin Aspart 1 00 Unit/1 Ml SUBCUT 8 unit WM&BEDTIME EDWARDO Administration Protocol Losartan Potassium 100 mg 09/03/20 09:00 09/03/20 08:10 Losartan 50 Mg T ablet PO 100 mg DAILY EDWARDO Administration Vitals/I&O/Wt Last Vital Signs Temp 98.6 F 09/03/20 11:00 Pulse 88 09/03/20 11:00 Resp 20 H 09/03/20 11:00 BP 177/79 09/03/20 11:00 Pulse Ox 93 09/03/20 11:00 09/03/20 09/03/20 09/03/20 06:59 14:59 22:59 Intake Total 392.5 / 392.5 600 / 600 Output Total 175 / 175 Balance 217.5 / 217.5 600 / 600 Weight last 48 hrs Weight 115.666 kg Physical Exam Narrative: EXAM NARRATIVE: Awake alert oriented x4. No acute distress. Mood and affect are appropriate. Skin is warm and dry. Moist mucous membranes. Normal speech. No facial asymmetry. Eyes PERRLA, extraocular muscles are intact Neck supple. No JVD Lungs clear bilaterally. No respiratory distress Heart S1, S2, regular Abdomen soft, obese, nontender, bowel sounds are present Extremities no edema cyanosis or calf tenderness bilaterally Neuro examination is nonfocal. Cerebellar tests seem to be within normal range. Data : 09/03/20 01:22 09/03/20 01:22 Other Labs: Laboratory Results WBC 9.0 10^3/uL (4.0-10.0) 09/03/20 01:22 RBC 4.96 10^6/uL (4.1-5.3) 09/03/20 01:22 Hgb 14.1 g/dL (11.7-16.6) 09/03/20 01:22 Hct 43.8 % (42.0-52.0) 09/03/20 01:22 MCV 88.3 fL (80-94) 09/03/20 01: MCH 28.4 pg (28.0-34.0) 09/03/20 01: MCHC 32.2 g/dL (30.0-36.0) 09/03/20 01: RDW 12.8 % (12.1-15.1) 09/03/20 01:22 Plt Count 295 10^3/cmm (130-400) 09/03/20 01:22 MPV 8.6 fL (7.4-10.4) 09/03/20 01: Neut % (Auto) 57.7 % 09/03/20 01: Lymph % (Auto) 31.8 % 09/03/20 01:22 Sutter % (Auto) 7.5 % 09/03/20 01:22 Eos % (Auto) 1.9 % 09/03/20 01: Baso % (Auto) 0.8 % 09/03/20 01:22 Neut # (Auto) 5.18 10^3/uL (1.8-7.7) 09/03/20 01:22 Lymph # (Auto) 2.9 10^3/uL (0.8-4.8) 09/03/20 01:22 Sutter # (Auto) 0.7 10^3/uL (0.2-0.9) 09/03/20 01:22 Eos # (Auto) 0.2 10^3/uL (0.0-0.8) 09/03/20 01:22 Baso # (Auto) 0.1 10^3/uL (0.0-0.1) 09/03/20 01:22 Nucleated RBC % (auto) 0 % 09/03/20 01:22 Nucleated RBCs # 0.0 /100WBC 09/03/20 01:22 PT 14.10 SECONDS (12.1-14.9) 09/03/20 01:22 INR 1.05 (0.8-1.2) 09/03/20 01:22 Sodium 133 mmol/L (136-145) L 09/03/20 01:22 Potassium 4.2 mmol/L (3.5-5.1) 09/03/20 01:22 Chloride 97 mmol/L (98-107) L 09/03/20 01:22 Carbon Dioxide 26 mmol/L (22-29) 09/03/20 01:22 Anion Gap 14.2 (5-19) 09/03/20 01:22 BUN 24 mg/dL (8-23) H 09/03/20 01:22 Creatinine 1.2 mg/dL (0.7-1.2) 09/03/20 01:22 GFR Calculation Not Reportable 09/03/20 01:22 Glucose 220 mg/dL (65-115) H 09/03/20 01:22 POC Glucose 230 mg/dL (70-110) H 09/03/20 11:06 Estimat Average Glucose 189 09/03/20 01:22 Hemoglobin A1c 8.2 % (4.0-6.0) H 09/03/20 01:22 Calculated Osmolality 287 mOsm/kg (285-295) 09/03/20 01:22 Calcium 9.7 mg/dL (8.5-10.5) 09/03/20 01:22 Magnesium 2.2 mg/dL (1.7-2.3) 09/03/20 01:22 Total Bilirubin 0.3 mg/dL (0.15-1.2) 09/03/20 01:22 AST 15 U/L (0-40) 09/03/20 01:22 ALT 17 U/L (0-41) 09/03/20 01:22 Alkaline Phosphatase 88 IU/L (40-130) 09/03/20 01:22 Troponin T Baseline 24 ng/L (0-15) H 09/03/20 01:22 Troponin T 120 Minute 22.40 ng/L (0-15) H 09/03/20 03:28 Delta Troponin T -1.60 ABS# (0-10) L 09/03/20 03:28 NT-Pro-B Natriuret Pep 28 pg/mL (0-125) 09/03/20 01:22 Total Protein 7.5 g/dL (6.6-8.7) 09/03/20 01:22 Albumin 4.2 g/dL (3.5-5.2) 09/03/20 01:22 Globulin 3.3 g/dL (1.3-4.6) 09/03/20 01:22 Triglycerides 135 mg/dL (0-150) 09/03/20 03:28 Cholesterol 151 mg/dL (0-200) 09/03/20 03:28 LDL Cholesterol, Calc 91 mg/dL (50-129) 09/03/20 03:28 HDL Cholesterol 33 mg/dL (60-100) L 09/03/20 03:28 LDL/HDL Ratio 2.76 RATIO (0.00-3.22) 09/03/20 03:28 Cholesterol/HDL Ratio 4.58 mg/dL (1.0-5.00) 09/03/20 03:28 Free T4 1.05 ng/dL (0.82-1.77) 09/03/20 03:28 Urine Color Yellow (Yellow) 09/03/20 02:00 Urine Appearance Clear (CLEAR) 09/03/20 02:00 Urine pH 5 (5-7) 09/03/20 02:00 Ur Specific [place] 1.015 (1.005-1.030) 09/03/20 02:00 Urine Protein Neg (Negative) 09/03/20 02:00 Urine Glucose (UA) 2+ (Normal) 09/03/20 02:00 Urine Ketones Negative (Negative) 09/03/20 02:00 Urine Blood Neg (Negative) 09/03/20 02:00 Urine Nitrate Negative (Negative) 09/03/20 02:00 Urine Bilirubin Neg (Negative) 09/03/20 02:00 Urine Urobilinogen Norm mg/dL (Negative) 09/03/20 02:00 Ur Leukocyte Esterase Negative (Negative) 09/03/20 02:00 Impressions Chest X-Ray 09/03/20 01:19 IMPRESSION: No acute findings. Mild cardiomegaly. Head CT 09/03/20 01:19 IMPRESSION: No acute findings. Radiation Dose CTDIVOL = (mGy): DLP = 743.27 (mGy-cm) Head/Neck CTA 09/03/20 04:28 IMPRESSION: 1. At least a moderate to marked stenosis of the origin of the left vertebral artery from the aortic arch. Other arterial findings detailed above. 2. Degenerative disease in the cervical spine. Other findings detailed above. REFERENCES: NASCET CRITERIA. The degree of internal carotid artery stenosis is based on NASCET criteria. Normal is no stenosis. Mild is less than 50% stenosis. Moderate is 50-69% stenosis. Severe is 70% to 99% stenosis. Total occlusion is no detectable patent lumen. Radiation Dose CTDIVOL = (mGy): DLP = 2754.53~2754.53 (mGy-cm) A&P Assessment and plan (1) Obesity: Status: Acute (2) Fatigue: Status: Acute (3) Right sided weakness: Status: Acute (4) Hypertension: Status: Acute Qualifiers: Hypertension type: unspecified Qualified Code(s): I10 - Essential (primary) hypertension (5) Hypertensive urgency: Status: Acute (6) New onset type 2 diabetes mellitus: Status: Acute (7) TIA (transient ischemic attack): Status: Acute (8) Morbid obesity: Status: Acute (9) Metabolic syndrome X: Status: Acute Additional A&P Information Metabolic X syndrome Morbid obesity, hypertension, diabetes, abnormal TSH, visceral obesity Abnormal TSH, hemoglobin A1c 8.5, hypertensive urgency Patient counseled on lifestyle modification For new onset diabetes I will start him on insulin in the hospital, at the time of discharge he will need Metformin and GLP-1 analog ideally to help him lose weight Hypertensive urgency responded well to labetalol amlodipine in the ER, I would add hydrochlorothiazide and amlodipine along with losartan for grade 3 hypertension TIA Continue aspirin high-dose, will add Plavix and high-dose statins We will request CT head and neck and MRI in the morning Full code Consistent carb diet DVT prophylaxis [place] Suspected TIA/CVA. Currently on dual antiplatelet therapy. MRI is pending. Peripheral vascular disease, vertebral artery disease. Conservative management. Outpatient follow-up and possible referral. Continue statin for dyslipidemia. Hypertensive emergency. Currently stabilized. We will continue adjusting his maintenance medications and as needed coverage. Uncontrolled diabetes. We will start Januvia. We will add Metformin prior to discharge. We will continue insulin sliding scale for now. Possible hypothyroidism. We will start small dose of Synthroid. Will need outpatient follow-up and adjustments. DVT prophylaxis. Teds and SCDs. The plan of care was discussed with the patient. He verbalized understanding and agreement. Attestations Medical Necessity Statement*: Probably discharge in the morning. MRI is pending Coding Level of Care Code Acute Superintendent Marine for Chg Fwd Diagnoses Obesity E66.9 Fatigue R53.83 Right sided weakness R53.1 Hypertension I10 Hypertension type: unspecified Hypertensive urgency I16.0 New onset type 2 diabetes mellitus E11.9 TIA (transient ischemic attack) G45.9 Morbid obesity E66.01 Metabolic syndrome X E88.81
[2020-09-03 16:58] LABS: Glucose Point of Care 183 mg/dL (70-110)
[2020-09-03] MEDS: magnesium oxide 400 mg tablet PO (17:51)
[2020-09-03 21:01] LABS: Glucose Point of Care 237 mg/dL (70-110)
[2020-09-04 04:28] VITALS: BP 130/71; PULSE 67; RESP 20; TEMP 36.6; O2SAT 94
[2020-09-04] MEDS: levothyroxine 150 mcg Tablet 75 MCG PO (05:23)
[2020-09-04 05:31] LABS: Basophils % 0.5 %; Eosinophils # 0.2 10^3/uL (0.0-0.8); Eosinophils % 2.3 %; Hematocrit 39.7 % (42.0-52.0); Hemoglobin 12.9 g/dL (11.7-16.6); Lymphocytes # 1.7 10^3/uL (0.8-4.8); Lymphocytes % 23.5 %; Mean Corpuscular HGB Conc 32.5 g/dL (30.0-36.0); Mean Corpuscular Hemoglobin 28.7 pg (28.0-34.0); Mean Corpuscular Volume 88.2 fL (80-94); Mean Platelet Volume 8.8 fL (7.4-10.4); Monocytes # 0.6 10^3/uL (0.2-0.9); Neutrophils # 4.85 10^3/uL (1.8-7.7); Neutrophils % 65.3 %; Nucleated Red Blood Cells % 0 %; Platelet Count 242 10^3/cmm (130-400); Red Cell Distribution Width 12.9 % (12.1-15.1); White Blood Count 7.4 10^3/uL (4.0-10.0)
[2020-09-04 05:56] LABS: Albumin Level 3.7 g/dL (3.5-5.2); Blood Urea Nitrogen 23 mg/dL (8-23); Calcium 9.1 mg/dL (8.5-10.5); Carbon Dioxide 23 mmol/L (22-29); Chloride 100 mmol/L (98-107); Glucose 168 mg/dL (65-115); Magnesium 1.9 mg/dL (1.7-2.3); Phosphorus 4.6 mg/dL (2.5-4.5); Sodium 135 mmol/L (136-145)
--- NOTE | 2020-09-04 06:21 | MR_ITS ---
WS: [id number] MRI BRAIN WITHOUT CONTRAST HISTORY: TIA COMPARISON: CT head 09/03/2020. TECHNIQUE: Diffusion imaging, multiplanar T1, T2 and FLAIR imaging obtained. Intermediate increased signal in the LEFT anterior medulla. Subtle ADC map changes. Suspicious for a LEFT medulla infarct. No additional diffusion-weighted abnormalities. Mild atrophy. Numerous scattered T2 and FLAIR signal hyperintensities throughout the subcortical whit e matter. No hemorrhage. Large retrocerebellar arachnoid cyst. Ventricles and extra-axial spaces are normal. Sella turcica and pituitary gland are negative. Dural venous sinuses and viejas of Vaneg[place] demonstrate no abnormality on this unenhanced studies. Paranasal sinuses: Mucous retention cyst in the RIGHT maxillary sinus. No air-fluid levels. Mastoid air cells: Normal. Calvarium and scalp: Intact. MR/MR head wo con* [id number] IMPRESSION: 1. 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 2. Moderate chronic microvascular ischemic changes. 3. No hemorrhage.
[2020-09-04 06:46] LABS: Glucose Point of Care 189 mg/dL (70-110)
[2020-09-04 07:35] VITALS: BP 149/84; PULSE 60; RESP 17; TEMP 36.4; O2SAT 93
[2020-09-04] MEDS: amlodipine 10 mg Tablet PO (09:13)
[2020-09-04] MEDS: magnesium oxide 400 mg tablet PO (09:14)
[2020-09-04] MEDS: sitagliptin 100 mg Tablet 50 MG PO (09:14)
[2020-09-04] MEDS: aspirin 81 mg EC Tablet PO (09:14)
[2020-09-04] MEDS: clopidogrel 75 mg Tablet PO (09:15)
[2020-09-04] MEDS: isosorbide mononitrate ER 30 mg Tablet PO (09:15)
[2020-09-04 09:18] VITALS: BP 149/83
[2020-09-04] MEDS: losartan 50 mg Tablet 100 MG PO (09:18)
[2020-09-04] MEDS: atorvastatin 40 mg Tablet 80 MG PO (09:18)
--- NOTE | 2020-09-04 09:49 | PC.CHAP ---
to go home
--- NOTE | 2020-09-04 09:50 | PC.NURSE ---
Patient to MRI at this time.
--- NOTE | 2020-09-04 10:41 | PC.NURSE ---
Patient returned from MRI at this time.
[2020-09-04 11:05] LABS: Glucose Point of Care 232 mg/dL (70-110)
[2020-09-04 11:24] VITALS: BP 129/65; PULSE 76; RESP 16; TEMP 36.6; O2SAT 94
[2020-09-04 16:00] VITALS: BP 141/64; PULSE 76; RESP 15; TEMP 36.5; O2SAT 93
--- NOTE | 2020-09-04 16:04 | P.DS_ITS ---
Discharge Providers Date of Admission: 09/03/20 05:12 Date of Discharge: September 04, 2020 Attending Provider at Admission: Idania Arellano MD Attending Provider at Discharge: Addison Husain Primary Care Provider: Dr. Acevedo Diagnoses at Discharge Discharge Diagnosis (1) Obesity: Status: Acute (2) Right sided weakness: Status: Acute (3) Hypertensive urgency: Status: Acute (4) New onset type 2 diabetes mellitus: Status: Acute (5) CVA (cerebral vascular accident): Status: Acute (6) Dyslipidemia: Status: Acute (7) Hypothyroidism: Status: Acute Reason for Visit Reason for Visit: high blood pressure Hospital Course Hospital Course Please see patient's H&P, consult notes and progress notes for more details. Briefly, 75 year old male who does not have known significant past medical history prese nted for high blood pressure. Patient is stating that last Friday he started experiencing right-sided facial droop, right arm numbness and right lower extremity weakness. Most of the symptoms resolved. Has some residual right- sided weakness. MRI revealed left medullary stroke. CT angio neck and head revealed moderate stenosis in the P1 segment of the left posterior cerebral artery and at least a moderate to marked stenosis of the origin of the left vertebral artery from the aortic arch. Please see the report for the complete details. The patient was started on dual antiplatelet therapy, statin, adjusted blood pressure medication regiment and diabetes medications. The patient also has elevated TSH for which she is started on Synthroid. All these problems will need to be monitored in outpatient settings. I discussed his findings and discharge plan of care with Dr. Villeda, neurology and Dr. Acevedo, patient's primary care physician. The patient will be referred to neuro vascular specialist Filippo Caceres with [facility] in [place]. Discharge instructions were discussed with the patient. He verbalized understanding and agreement. He was also instructed to come back to emergency room if he develops any new symptoms. Agreed. The patient has a follow-up appointment with Dr. Acevedo tomorrow. Echo will be done prior to discharge. Dr. Acevedo will follow up the report. I appreciate his input. I also appreciate Dr. Villeda's help and advice. Discharge diagnoses and problem list Left medullary ischemic stroke. Please see MRI report. Peripheral vascular disease, vertebral artery disease. Conservative management. Outpatient follow-up as soon as possible. Continue antiplatelets and statin. Hypertensive emergency. Currently stabilized. Uncontrolled diabetes. We will start Januvia. We will add Metformin prior to discharge. We will continue insulin sliding scale for now. Hypothyroidism. Continue Synthroid. Will need outpatient follow-up and adjustments. Time spent on this discharge is 50 minutes. This includes discussions with the patient and the specialists. Physical Exam Narrative: EXAM NARRATIVE: Awake alert oriented x4. No acute distress. Mood and affect are appropriate. Skin is warm and dry. Moist mucous membranes. Normal speech. No facial asymmetry. Eyes PERRLA, extraocular muscles are intact Neck supple. No JVD Lungs clear bilaterally. No respiratory distress Heart S1, S2, regular Abdomen soft, obese, nontender, bowel sounds are present Extremities no edema cyanosis or calf tenderness bilaterally Mild right-sided weakness. Cerebellar tests seem to be within normal range. Discharge Data Data Completed and Pending: Completed Studies During Hospitalization Category Date Time Status CT angio headneck * [id number] Urge nt Cat Scan 09/03/20 04:[address] head wo con* [id number] Urgent Cat Scan 09/03/20 01:19 Completed XR chest 1V wilma ble [id number] Urgent Exams 09/03/20 01:19 Completed MR head wo con* [id number] Routine MRI 09/04/20 06:21 Completed Pending at discharge Category Date Time Status CV echo complete* [id number] Routine Ultrasound 09/05/20 05:00 Ordered Labs from last 24 hours 09/04/20 09/04/20 09/04/20 10:49 06:40 04:53 WBC RBC Hgb Hct MCV MCH MCHC RDW Plt Count MPV Neut % (Auto) Lymph % (Auto) Dukes % (Auto) Eos % (Auto) Baso % (Auto) Neut # (Auto) Lymph # (Auto) Dukes # (Auto) Eos # (Auto) Baso # (Auto) Nucleated RBC % (a uto) Nucleated RBCs # Sodium Potassium Chloride Carbon Dioxide Anion Gap BUN Creatinine GFR Calculation Glucose POC Glucose 232 H 189 H Calcium Phosphorus Magnesium Albumin TSH 5.50 H 09/04/20 09/04/20 09/03/20 04:53 04:53 20:54 WBC 7.4 RBC 4.50 Hgb 12.9 Hct 39.7 L MCV 88.2 MCH 28.7 MCHC 32.5 RDW 12.9 Plt Count 242 MPV 8.8 Neut % (Auto) 65.3 Lymph % (Auto) 23.5 Dukes % (Auto) 8.0 Eos % (Auto) 2.3 Baso % (Auto) 0.5 Neut # (Auto) 4.85 Lymph # (Auto) 1.7 Dukes # (Auto) 0.6 Eos # (Auto) 0.2 Baso # (Auto) 0.0 Nucleated RBC % (a uto) 0 Nucleated RBCs # 0.0 Sodium 135 L Potassium 4.0 Chloride 100 Carbon Dioxide 23 Anion Gap 16.0 BUN 23 Creatinine 1.1 GFR Calculation Not Reportable Glucose 168 H POC Glucose 237 H Calcium 9.1 Phosphorus 4.6 H Magnesium 1.9 Albumin 3.7 TSH 09/03/20 16:50 WBC RBC Hgb Hct MCV MCH MCHC RDW Plt Count MPV Neut % (Auto) Lymph % (Auto) Dukes % (Auto) Eos % (Auto) Baso % (Auto) Neut # (Auto) Lymph # (Auto) Dukes # (Auto) Eos # (Auto) Baso # (Auto) Nucleated RBC % (a uto) Nucleated RBCs # Sodium Potassium Chloride Carbon Dioxide Anion Gap BUN Creatinine GFR Calculation Glucose POC Glucose 183 H Calcium Phosphorus Magnesium Albumin TSH Vitals: Last Vital Signs Temp 97.9 F 09/04/20 11:24 Pulse 76 09/04/20 11:24 Resp 16 09/04/20 11:24 BP 129/65 09/04/20 11:24 Pulse Ox 94 09/04/20 11:24 Discharge Plan Discharge Patient Disposition: Home Condition: Stable Prescriptions: New losartan 50 mg Tablet 100 mg PO DAILY Qty: 30 RF: 0 atorvastatin 40 mg Tablet 80 mg PO DAILY Qty: 30 RF: 0 isosorbide mononitrate 30 mg Tablet Extended Release 24 Hr 30 mg PO DAILY Qty: 30 RF: 0 clopidogrel 75 mg Tablet 75 mg PO DAILY Qty: 30 RF: 0 aspirin 81 mg Tablet,Delayed Release (Dr/Ec) 81 mg PO DAILY Qty: 30 RF: 0 amlodipine 10 mg Tablet 10 mg PO DAILY Qty: 30 RF: 0 levothyroxine 150 mcg Tablet 75 mcg PO QAM Qty: 30 RF: 0 Januvia 100 mg Tablet 50 mg PO DAILY Qty: 30 RF: 0 metformin 500 mg tablet 500 mg PO TID Qty: 90 RF: 0 Discontinued aspirin 325 mg tablet 325 mg PO DAILY@0800 RF: 0 ibuprofen 200 mg tablet 200 mg PO Q6H PRN (Reason: pain/fever) RF: 0 losartan 50 mg tablet 50 mg PO DAILY@0800 RF: 0 Discharge Orders: Discharge Order (Routine); Ordered 09/04/20 Ordered By: Addison Husain Other Ambulatory Orders: Comprehensive Metabolic Panel (Routine) Timeframe: 2 Weeks Facility: [facility] - Location: Lab - Main Lab Ordered By: Addison Husain Thyroid Stimulating Hormone (Routine) Timeframe: 3 Weeks Facility: [facility] - Location: Lab - Main Lab Ordered By: Addison Husain Referrals: Omaira Villeda MD [Physician] - 2 weeks Arnoldo Acevedo MD [Physician] - 1-3 days (Follow-up tomorrow. Patient will need to be referred to neurovascular specialist. (Consider Filippo Caceres with [facility] in [place]) Office phone #[phone]) Discharge Diet: Cardiac, Diabetic and Low Cholesterol Discharge Activity: Increase activity as tolerated and As per PT/OT instructions Patient Instructions: Diabetes and Diet, Diabetic Foot Care (DC), Diabetes Mellitus Type 2 in Adults (DC), Diabetic Retinopathy (GEN), Ischemic Stroke (DC), Hypertension (DC) Activity Restrictions/Additional Instructions: Please return to emergency room if develop any new weakness, problems with speech, confusion, headache, problems with sensation or balance, problems with vision, chest pain, palpitations, or any other new complaints. Please follow-up with the primary care physician and neurologist as instructed. Request referral for vascular specialist evaluation. Discharge Attestations Time Spent in Discharge Care*: greater than 30 min Quality Metrics Clinical Quality Measures During this hospital stay, did patient experience: Stroke Contraindication to Antithrombotic: Antithrombotic prescribed Contraindication to Anticoagulation: Overlap treatment not indicated Contraindication to Statin: Statin prescribed Coding Level of Care Code Acute General Accounting Manager for g Fwd Diagnoses Obesity E66.9 Right sided weakness R53.1 Hypertensive urgency I16.0 New onset type 2 diabetes mellitus E11.9 CVA (cerebral vascular accident) I63.9 Dyslipidemia E78.5 Hypothyroidism E03.9
--- NOTE | 2020-09-04 17:00 | PC.NURSE ---
Reviewed patient discharge with patient at this time including the Stroke booklet. Patient verbalized understanding of follow up appointments. Patient states that he has a follow up with Dr. Mosher in the morning. Patient IV removed intact. Patient tolerated well. Patient is A&Ox3. Respirations even and non-labored on room air. Patient wheel chaired to private car.
[2020-09-04 17:17] VITALS: BP 141/64; PULSE 76; RESP 15; TEMP 36.5; O2SAT 93
== END 2020-09-04 17:00 | disposition home or self-care (01) ==
LOC: ER 04:54 → MEDSURG 05:36
PROVIDERS: Nurse Practitioner Family; Admitting Provider Internal Medicine; Emergency Provider Emergency Medicine; PCP Family Medicine; Visit Provider Internal Medicine
DX: I10 Essential (primary) hypertension (principal); Z79.82 Long term (current) use of aspirin; Z86.73 Personal history of transient ischemic attack (TIA), and cerebral infarction without residual deficits; Z87.891 Personal history of nicotine dependence; E66.01 Morbid (severe) obesity due to excess calories; Z68.35 Body mass index [BMI] 35.0-35.9, adult; R53.83 Other fatigue; R53.1 Weakness; I16.0 Hypertensive urgency; E11.9 Type 2 diabetes mellitus without complications; E88.81 Metabolic syndrome and other insulin resistance; E03.9 Hypothyroidism, unspecified; E78.5 Hyperlipidemia, unspecified
CPT/HCPCS: 12345; 36415; 36416; 70450; 70496; 70498; 70551; 71045; 80053; 80061; 80069; 81003; 82962; 83036; 83735; 83880; 84439; 84443; 84484; 85025; 85610; 93005; 96361; 96372; 96374; 96375; 97161; 99283; 99285; G0378; J1815; J3490; J7030; Q9967

== ENCOUNTER 2020-09-14 08:10 | Outpatient (CLI) | payer MEDICARE, OTHER, SELFPAY ==
[2020-09-14 08:26] VITALS: BMI 34.8
--- NOTE | 2020-09-14 08:27 | NMCV_ITS ---
NM jason perf SPECT r/s* [id number] Demond Pastrana Age: 75 Gender: M : 1945 Exam Date: 09/14/2020 09:46 Ordering Phys: Arnoldo Acevedo MD Technologist: SAM Stallworth Exam Location: [facility] Indications: CVA STRESS TEST [facility] for [facility] IMAGE PROTOCOL Rest/Stress 1 Lexiscan Day Radiopharmaceutical Dose (mCi) Administration Site Administered by Rest: Tc-99m 10.8 IV Nicole Foreman COVER OPERATOR Sestamibi Stress:Tc-99m 32.8 IV Nicole Foreman, COVER OPERATOR Sestamibi Rest: 14-Sep-2020 60 Discovery 630 Stress: 14-Sep-2020 30 Discovery 630 0.4mg Lexiscan. Images obtained in supine and prone position. SPECT RESULTS Technical Quality: Raw Data Analysis: Image Corrections: Summed Stress Score: 2 Summed Rest Score: 0 Summed Difference Score: 2 PERFUSION FINDINGS SPECT images demonstrate homogeneous tracer distribution throughout the myocardium. FUNCTIONAL RESULTS (calculated via Gated SPECT) Stress Image LV EF (%): 59 Stress EDV (mL):92 TID: 0.92 Stress ESV (mL):38 FUNCTIONAL FINDINGS: The left ventricle is normal in size. Transient Ischemia Dilatation of 0.92. There is normal left ventricular systolic function. The left ventricular ejection fraction is normal with a value of 59%. There is normal left ventricular wall thickening. No regional wall motion abnormality. Normal end diastolic and end systolic function. IMPRESSIONS 1. Myocardial perfusion imaging is normal. 2. Overall left ventricular systolic function is normal without regional wall motion abnormalities. 3. The left ventricular ejection fraction is normal with a value of 59%. 4. This study suggests a low likelihood of angiographically significant coronary artery disease. Caitlyn Rico MD (Electronically Signed) Final Date: 17 September 2020 14:52 S
--- NOTE | 2020-09-14 08:27 | ECG_ITS ---
[facility] Test Date: 2020-09-14 Pat Name: Demond Pastrana Department: Room: Gender: Male Referral And Information Aide: : 1945 Requested By: Arnoldo Acevedo Order Number: [id number] Calix MD: Caitlyn Rico M.D. Interpretive Statements NAME OF STUDY: LEXISCAN SESTAMIBI STRESS TEST INDICATION: CVA PROCEDURE: At the baseline, the blood pressure was 105/54 mm Hg with a heart rate of 71 bpm. The electrocardiogram showed sinus rhythm with frequent PVC's in bigeminal pattern.Non specific ST depression. ??? The Lexiscan was infused over a period of 20 seconds. A total of 0.4 milligrams of Lexiscan was infused. The stress phase was continued for a total of 5 minutes. Heart rate at the end of the stress phase was 85 bpm with a blood pressure of 204/78 mm Hg. The EKG at the peak infusion revealed sinus rhythm with no significant ST-T wave changes. ??? Sestamibi was injected 20 seconds after the Lexiscan infusion. ??? Blood pressure at the end of the recovery phase was 203/76 mm Hg with a heart rate of 85 beats per minute. ??? CONCLUSION: 1. No significant EKG changes with the LexiScan infusion. 2. No LexiScan induced chest pain or cardiac arrhythmia. 3. Normal blood pressure and heart rate response. 4. Sestamibi/sestamibi perfusion scan pending; see separate report. Electronically Signed On 09-17-2020 20:40:36 GOSPEL WORKER by Caitlyn Rico M.D. [id number]
[2020-09-14] MEDS: regadenoson 0.4 Mg/5 ml Syringe IVP (10:30)
[2020-09-14 10:50] VITALS: BP 125/90; PULSE 83
== END 2020-09-14 08:11 | disposition home or self-care (01) ==
PROVIDERS: PCP Internal Medicine; Visit Provider Internal Medicine
DX: I63.9 Cerebral infarction, unspecified (principal)
CPT/HCPCS: 78452; 93017; A9500; J2785

== ENCOUNTER 2020-09-25 14:31 | Outpatient (CLI) | payer MEDICARE, OTHER, SELFPAY ==
--- NOTE | 2020-09-25 15:00 | USCV_ITS ---
Victoriano Demond Age: 75 Gender: M : 1945 Exam Date: 09/25/2020 15:15 Ordering Phys: Arnoldo Acevedo MD Technologist: Candice Anton [place]am Location[place] [facility] [place] Indication: CEREB INFARC BP: 187 / 77 HR: 55 Rhythm: Sinus Technical Quality: Fair MEASUREMENTS (Male / Female) Normal Values 2D ECHO LV Diastolic Diameter PLAX 5.3 cm 4.2 - 5.9 / 3.9 - 5.3 cm LV Systolic Diameter PLAX 2.6 cm LV Chamber Size 4.8 cm IVS Diastolic Thickness 1.6 cm 0.6 - 1.0 / 0.6 - 0.9 cm IVS Systolic Thickness 2.0 cm LVPW Diastolic Thickness 0.8 cm 0.6 - 1.0 / 0.6 - 0.9 cm LVPW Systolic Thickness 1.2 cm RV Chamber Size 3.1 cm LVOT Diameter 2.1 cm LV Ejection Fraction 2D Teich 82.1 % LA Diameter 3.7 cm LA Width 2.9 cm LA Height 4.7 cm RA Width 2.9 cm RA Height 4.6 cm Aorta at Sinotubular Diameter 2.4 cm M-MODE LV Diastolic Diameter MM 6.3 cm 4.2 - 5.9 / 3.9 - 5.3 cm LV Systolic Diameter MM 2.9 cm LV Ejection Fraction MM Teich 84.4 % IVS Diastolic Thickness MM 0.7 cm 0.6 - 1.0 / 0.6 - 0.9 cm IVS Systolic Thickness MM 1.1 cm LVPW Diastolic Thickness MM 1.0 cm 0.6 - 1.0 / 0.6 - 0.9 cm LVPW Systolic Thickness MM 1.6 cm Aortic Annulus Diameter 3.0 cm LA Ao Ratio MM 1.4 MV E Point Septal Separation 0.7 cm DOPPLER AV Peak Velocity 191.0 cm/s LVOT Peak Velocity 124.0 cm/s AV Area Cont Eq vti 2.7 cm squared AV Area Cont Eq pk 2.2 cm squared MV Area PHT 2.5 cm squared Mitral E to A Ratio 0.7 MV E' Velocity 32.5 cm/s Mitral E to MV E' Ratio 10.1 Mitral E to LV E' Lateral Ratio 9.5 Mitral E to LV E' Septal Ratio 10.9 TR Peak Velocity 260.0 cm/s TR Peak Gradient 27.0 mmHg TV Peak E Velocity 63.0 cm/s Right Atrial Pressure 3.0 mmHg Pulmonary Artery Systolic Pressu 30.0 mmHg PV Peak Velocity 91.0 cm/s FINDINGS Left Ventricle Normal left ventricular size and systolic function, EF 55%.no regional wall motion abnormalities. Right Ventricle Normal right ventricular size and systolic function, RVSP 30 mmHg. Right Atrium The right atrium is normal in size. Left Atrium The left atrium is normal in size. Mitral Valve Thickened mitral valve. Aortic Valve Thickened aortic valve. Tricuspid Valve No gross abnormalities noted Pulmonic Valve Pulmonic valve not well visualized. Pericardium No pericardial effusion. Aorta Normal aortic annulus size. CONCLUSIONS Normal left ventricular size and systolic function, EF 55%.no regional wall motion abnormalities. Thickened aortic and mitral valves There is no pericardial effusion. There are no intracardiac masses. Normal pulmonary artery pressures No previous similar studies available for comparison Dr Bree Lacy MD [facility] (Electronically Signed) Final Date: 25 September 2020 19:11 S
== END 2020-09-25 14:32 | disposition home or self-care (01) ==
LOC: US 14:34
PROVIDERS: PCP Internal Medicine; Visit Provider Internal Medicine
DX: I63.9 Cerebral infarction, unspecified (principal); I08.0 Rheumatic disorders of both mitral and aortic valves
CPT/HCPCS: 93306

== ENCOUNTER → 2021-04-26 00:01 | Outpatient (BNVA) | payer MEDICARE, OTHER, SELFPAY | PROVIDERS: PCP Internal Medicine; Visit Provider Internal Medicine | DX: E11.9 Type 2 diabetes mellitus without complications (principal); I10 Essential (primary) hypertension; E03.9 Hypothyroidism, unspecified; E78.5 Hyperlipidemia, unspecified; N40.0 Benign prostatic hyperplasia without lower urinary tract symptoms | CPT/HCPCS: G0103 ==

== ENCOUNTER → 2021-10-25 15:27 | Outpatient (BNVA) | payer MEDICARE, OTHER, SELFPAY | PROVIDERS: PCP Internal Medicine; Visit Provider Internal Medicine | DX: E11.9 Type 2 diabetes mellitus without complications (principal); R30.0 Dysuria; I10 Essential (primary) hypertension; E03.9 Hypothyroidism, unspecified; E78.5 Hyperlipidemia, unspecified; E66.01 Morbid (severe) obesity due to excess calories | CPT/HCPCS: 80053; 80061; 83036; 84443 ==

== ENCOUNTER → 2022-06-20 09:28 | Outpatient (BNVA) | payer MEDICARE, OTHER, SELFPAY | PROVIDERS: PCP Family Medicine; Visit Provider Family Medicine | DX: I10 Essential (primary) hypertension (principal); E11.9 Type 2 diabetes mellitus without complications; N40.0 Benign prostatic hyperplasia without lower urinary tract symptoms; E03.9 Hypothyroidism, unspecified; E78.5 Hyperlipidemia, unspecified; I63.9 Cerebral infarction, unspecified; R09.89 Other specified symptoms and signs involving the circulatory and respiratory systems; Z76.89 Persons encountering health services in other specified circumstances | CPT/HCPCS: 80053; 80061; 83036; 84153; 84439; 84443; 85025 ==

== ENCOUNTER 2022-08-21 09:12 | Outpatient (CLI) | payer MEDICARE, OTHER, SELFPAY ==
--- NOTE | 2022-08-21 09:15 | USCV_ITS ---
Demond Pastrana Age: 77 Gender: M : 1945 Exam Date: 08/21/2022 09:29 Ordering Phys: Erich Stanley DO Technologist: CT Exam Location: [facility] [place] Indication: bilateral bruit Risk Factors: Previous Vascular Surgery: Right Brachial BP: / Left Brachial BP: / Right Left Velocity (cm/s) Spectral Plaque Velocity (cm/s) Spectral Plaque Syst/Diast Broadening Syst/Diast Broadening 81.60/ 17.60 Prox CCA 95.20 / 18.80 105.80/22.10 Mid CCA 85.90 / 19.50 114.70/20.90 Distal CCA 88.20 / 18.30 71.80/ 18.80 Prox ICA 104.50/ 20.70 134.10/35.50 Mid ICA 82.20 / 21.70 58.70/ 16.70 Distal ICA 76.70 / 19.90 266.10 ECA 285.70 1.17 ICA/CCA 1.10 Antegrade Vertebral Antegrade 109.1/ 15.80 cm/s 93.80/ 15.00 cm/s 0 Bi Subclavian Bi 103.9 151.2 0 0 FINDINGS Comparison: none available. No significant elevation of systolic or diastolic velocities. Waveforms are normal. Diffuse, mild bilateral scattered calcified plaque and intimal thickening throughout the common carotid arteries and extending through the bifurcation. Antegrade vertebral arteries. CONCLUSIONS Bilateral ICA stenosis less than 50%. Mild carotid atherosclerosis. Dr. Astrid Angeles DO (Electronically Signed) Final Date: 21 August 2022 10:28 S
== END 2022-08-21 09:13 | disposition home or self-care (01) ==
LOC: RAD 09:14
PROVIDERS: PCP Family Medicine; Visit Provider Family Medicine
DX: R09.89 Other specified symptoms and signs involving the circulatory and respiratory systems (principal); I63.9 Cerebral infarction, unspecified; Z76.89 Persons encountering health services in other specified circumstances; I65.23 Occlusion and stenosis of bilateral carotid arteries
CPT/HCPCS: 93880

== ENCOUNTER → 2022-10-02 10:09 | Outpatient (BNVA) | payer MEDICARE, OTHER, SELFPAY | PROVIDERS: PCP Family Medicine; Referring Provider Family Medicine; Visit Provider Specialist | DX: M67.911 Unspecified disorder of synovium and tendon, right shoulder | CPT/HCPCS: 73030; 99203 ==

== ENCOUNTER 2022-11-08 07:02 | Outpatient (CLI) | payer MEDICARE, OTHER, SELFPAY ==
--- NOTE | 2022-11-08 07:15 | MR_ITS ---
WS: [id number] MRI RIGHT SHOULDER HISTORY: rotator cuff damage COMPARISON: Radiographs 10/02/2022 TECHNIQUE: Multiplanar sequences of the shoulder joint are submitted. Moderate AC joint arthritis. Narrowing of the AC joint with fluid. Hypertrophic bone encroaching upon the supraspinatus myotendinous insertion. Slight downsloping of the acromion contacting the superior humeral head. Marked subacromial impingement. No os acromion. Biceps tendon is not identified in the bicipital groove. Moderate glenohumeral joint space narrowing. Markedly high riding humeral head abuts the acromion. Th ere is a large amount of fluid surrounding the humeral head. Moderate atrophy of the supraspinatus mu scle. Tendon is torn and retracted to the glenoid. There is very mild fraying along the visualized cantrell rface of the tendon at the level of the glenoid. Abnormal appearance of the subscapularis tendon. Int ermediate signal within the distal tendon and only a few fibers remaining. There is mild narrowing of the coracohumeral interval. Infraspinatus tendon is very poorly visualized. There is a small amount of edema throughout the infraspinatus muscle which can be seen with brachial neuritis. The very dista l infraspinatus tendon is not visualized. There is a fluid gap where the expected infraspinatus tendo n should normally be position. Small caliber labrum from intrasubstance degeneration. Suspect tears are also present. MR/MR shoulder RT wo con* [id number] IMPRESSION: 1. Complete tear supraspinatus with retraction to the glenoid. Moderate supras pinatus muscle atrophy. 2. Abnormal infraspinatus muscle and tendon. Edema within the infraspinatus mu scle. The infraspinatus tendon appears torn at its insertion site. The extent o f retraction cannot be determined. 3. Very small caliber subscapularis tendon. Suspect partial tear with addition al tendinopathy. 4. Moderate AC joint arthritis. 5. High riding humeral head abuts the acromion. 6. Biceps tendon not identified in the bicipital groove. Torn versus subluxed.
== END 2022-11-08 07:03 | disposition home or self-care (01) ==
LOC: RAD 07:05
PROVIDERS: PCP Family Medicine; Visit Provider Specialist
DX: M75.121 Complete rotator cuff tear or rupture of right shoulder, not specified as traumatic (principal); M67.911 Unspecified disorder of synovium and tendon, right shoulder
CPT/HCPCS: 73221

== ENCOUNTER → 2023-03-11 10:00 | Outpatient (BNVA) | payer MEDICARE, OTHER, SELFPAY | PROVIDERS: PCP Family Medicine; Visit Provider Family Medicine | DX: I10 Essential (primary) hypertension (principal); E11.9 Type 2 diabetes mellitus without complications; N40.0 Benign prostatic hyperplasia without lower urinary tract symptoms; M54.40 Lumbago with sciatica, unspecified side; E03.9 Hypothyroidism, unspecified; E78.5 Hyperlipidemia, unspecified; E83.52 Hypercalcemia | CPT/HCPCS: 80053; 80061; 82306; 83036; 84443; 85025 ==

== ENCOUNTER → 2023-04-01 08:56 | Outpatient (BNVA) | payer MEDICARE, OTHER, SELFPAY | PROVIDERS: PCP Family Medicine; Referring Provider Family Medicine; Visit Provider Orthopaedic Surgery | DX: M54.40 Lumbago with sciatica, unspecified side (principal) | CPT/HCPCS: 72110; 99204 ==

== ENCOUNTER 2023-04-10 14:56 | Outpatient (CLI) | payer MEDICARE, OTHER, SELFPAY ==
--- NOTE | 2023-04-10 15:15 | MR_ITS ---
WS: [id number] MRI LUMBAR SPINE NONCONTRAST HISTORY: lower back pain COMPARISON: None available. TECHNIQUE: Sagittal and axial multisequence imaging is submitted. Mild degenerative scoliosis and straightening lumbar spine. Severe disc space narrowing throughout th e lumbar spine but most significant at L1-2 and L2-3. Reactive marrow edema and a small portion of th e L1 and L2 vertebral bodies. Conus terminates normally at L1-2 disc level. L1-L2: Mild osteophytic ridging and annular disc bulging. Disc material contacts the ventral thecal s ac with complete effacement of CSF. Moderate ligamentum flavum and facet arthritis. Moderate central with more severe subarticular recess and moderate bilateral foraminal stenosis. Most significant encr oachment upon the traversing L2 nerve roots. Small amount of fluid in the facet joints. L2-L3: Complete obliteration of the disc. Osteophytic ridging with marked ligamentum flavum and facet arthritis. Osteophytic ridging extends greatest to the LEFT. Moderate to severe central and bilatera l subarticular recess and moderate foraminal stenosis. Most significant encroachment upon the rosi ing LEFT L3 nerve root. L3-L4: Diffuse annular disc bulging with mild osteophytic ridging. Disc contacts and deforms the vent ral thecal sac. Severe ligamentum flavum and facet arthritis also encroaching into the central canal. Fluid in the facet joints. Severe central, bilateral subarticular recess and foraminal stenosis. L4-L5: Diffuse annular disc bulging with ligamentum flavum and facet arthritis. Severe central, bilat eral subarticular recess and moderate foraminal stenosis. L5-S1: Diffuse annular disc bulging with osteophytic ridging. Disc and osteophyte encroachment upon t he S1 nerve roots. Mild central, bilateral subarticular recess and foraminal stenosis. Paravertebral soft tissues are negative for acute findings. MR/MR lumbar spine wo con* [id number] IMPRESSION: 1. Severe multilevel degenerative changes throughout the lumbar spine with mul tilevel areas of stenosis due to multiple factors. Advanced facet disease and d isc disease at multiple levels. 2. L1-2: Moderate central with severe bilateral subarticular recess and modera te foraminal stenosis. 3. L2-3: Moderate to severe central, bilateral subarticular recess and moderat e foraminal stenosis. 4. L3-4: Severe central, bilateral subarticular recess and foraminal stenosis. 5. L4-5: Severe central, bilateral subarticular recess and moderate foraminal stenosis. 6. L5-S1: Mild central, bilateral subarticular recess and foraminal stenosis.
== END 2023-04-10 14:57 | disposition home or self-care (01) ==
PROVIDERS: PCP Family Medicine; Visit Provider Orthopaedic Surgery
DX: M48.061 Spinal stenosis, lumbar region without neurogenic claudication (principal); M48.07 Spinal stenosis, lumbosacral region
CPT/HCPCS: 72148

== ENCOUNTER → 2024-04-07 11:08 | Outpatient (BNVA) | payer MEDICARE, OTHER, SELFPAY | PROVIDERS: PCP Family Medicine; Visit Provider Family Medicine | DX: E11.9 Type 2 diabetes mellitus without complications (principal); E03.9 Hypothyroidism, unspecified; N40.0 Benign prostatic hyperplasia without lower urinary tract symptoms; I10 Essential (primary) hypertension; Z00.00 Encounter for general adult medical examination without abnormal findings; Z12.5 Encounter for screening for malignant neoplasm of prostate; E55.9 Vitamin D deficiency, unspecified | CPT/HCPCS: 80053; 80061; 82306; 83036; 84439; 84443; 85025; G0103 ==

== ENCOUNTER → 2024-11-14 15:35 | Outpatient (BNVA) | payer MEDICARE, OTHER, SELFPAY | PROVIDERS: PCP Family Medicine; Visit Provider Nurse Practitioner | DX: R52 Pain, unspecified (principal) | CPT/HCPCS: 87400 ==

== ENCOUNTER → 2025-04-26 15:10 | Outpatient (BNVA) | payer MEDICARE, OTHER, SELFPAY | PROVIDERS: PCP Family Medicine; Visit Provider Family Medicine | DX: R79.89 Other specified abnormal findings of blood chemistry (principal); Z12.5 Encounter for screening for malignant neoplasm of prostate; Z12.11 Encounter for screening for malignant neoplasm of colon; E11.9 Type 2 diabetes mellitus without complications; E03.9 Hypothyroidism, unspecified; I10 Essential (primary) hypertension | CPT/HCPCS: 80053; 80061; 82306; 82607; 84443; 85025; G0103 ==

== ENCOUNTER → 2025-05-05 13:57 | Outpatient (BNVA) | payer MEDICARE, OTHER, SELFPAY | PROVIDERS: PCP Family Medicine; Visit Provider Student in an Organized Health Care Education/Training Program | DX: Z12.11 Encounter for screening for malignant neoplasm of colon (principal) | CPT/HCPCS: 99024; 99204 ==

== ENCOUNTER 2025-05-25 07:07 | Day surgery (SDC) | payer MEDICARE, OTHER, SELFPAY ==
[2025-05-25 07:26] VITALS: BP 112/64; PULSE 95; RESP 18; TEMP 36.1; O2SAT 99; BMI 34.4
--- NOTE | 2025-05-25 07:48 | ANES.PREANE2 ---
Pre-Anesthetic Assessment Height/Weight: Height 5 ft 10 in Weight 240 lb Temp Pulse Resp BP Pulse Ox O2 Del Method 97 F L 95 18 112/64 99 Room Air 05/25/25 07:05/25/25 07:26 05/25/25 07:26 05/25/25 07:26 05/25/25 07:26 05/25/25 07:26 Preop Diagnosis: Screening colonoscopy Operation Date: 05/25/25 08:30 Proposed Procedures p Colonoscopy [id number] G0121 Z12.11(Not Applicable) - Deep Stewart MD Was Beta Mary taken within 24 hours: N/A Was Clonidine taken within 24 hours: N/A Last intake: Intake Last Liquid Date 05/24/25 Last Liquid Time 22:00 Last Solid Date 05/23/25 Last Solid Time 20:00 Social No alcohol and No tobacco Exam alert, oriented x 3, clear to auscultation bilaterally and regular rate & rhythm Airway Submandibular: within normal limits Cervical ROM: within normal limits Mallampati: Class III Dentition: full Comments: Comments: Jeff Anesthetic Plan ASA status: 3 Anesthesia: MAC Other: Patient has pseudocholinesterase deficiency. Extremely prolonged muscle weakness after succinylcholine as a young adult. This has been verified by testing Completed bowel prep Type 2 diabetes, no insulin Hypertension on amlodipine and losartan Prior TIA, no residual symptoms. On chronic Plavix, last taken Labs reviewed from 04/26/2025 acceptable for procedure, creatinine 1.4 which appears to be his baseline Prior EKG showing sinus rhythm with PVCs Plan for MAC anesthesia Medications/Allergies Home Medications ?Medication ?Instructions ?Recorded ?Confirmed ?Last Taken ?Type aspirin 81 mg tablet,delayed 81 mg PO DAILY #30 tabs 09/04/20 05/19/25 05/19/25 Rx release Glucometer #1 ea 09/05/20 05/05/25 Unknown Rx lancets #100 ea 09/05/20 05/05/25 Unknown Rx amlodipine 2.5 mg tablet 2.5 mg PO DAILY #90 tabs 04/26/25 05/19/25 05/25/25 Rx levothyroxine 50 mcg tablet 50 mcg PO DAILY #90 tabs 04/26/25 05/19/25 05/25/25 Rx metformin 500 mg tablet,extended 1,000 mg (2 x 500 mg) PO DAILY 04/26/25 05/19/25 05/24/25 Rx release 24hr (osmotic) #180 tabs tamsulosin 0.4 mg capsule (Flomax) 0.4 mg PO .QPM #90 caps 04/26/25 05/19/25 05/24/25 Rx atorvastatin 20 mg tablet 20 mg PO DAILY 05/19/25 05/19/25 05/24/25 History clopidogrel 75 mg tablet 75 mg PO DAILY 05/19/25 05/19/25 05/19/25 History losartan 100 mg tablet 100 mg PO DAILY 05/19/25 05/19/25 05/24/25 History Allergies Allergy/AdvReac Type Severity Reaction Status Date / Time succinylcholine Allergy Severe drained Verified 05/19/25 11:16 everything out of his muscles Current Medications Generic Name Dose Route Start Last Admin Trade Name Freq PRN Reason Stop Dose Admin Sodium Chloride 1,000 mls @ 15 mls/hr 05/25/25 07:17 05/25/25 07:38 Sodium Chloride 0.9% IV 05/26/25 07:16 15 mls/hr .Q24H PRN Administration COLONOSCOPY FLUIDS PFSH Anesthesia Medical History Umbilical hernia, incarcerated BPH (benign prostatic hyperplasia) CVA (cerebral vascular accident) Dyslipidemia Hypothyroidism New onset type 2 diabetes mellitus Hypertension, unspecified type Surgical History H/O bilateral hip replacements History of inguinal hernia repair 1994 left Ramer teeth extracted Family History Grandmother Cancer Maternal--colon Diabetes Brother Diabetes Father Heart disease CAD (coronary artery disease) Hyperlipidemia Hypertension Mother Heart disease CAD (coronary artery disease) Diabetes, Onset Age: 80 Hypertension Denies family history of Clotting disorder Dementia Chronic kidney disease (CKD) Anesthesia complication Bleeding disorder Lung disease Stroke Social History Smoking and tobacco/nicotine status: former use of tobacco/nicotine Alcohol intake: current Alcohol intake frequency: holidays/special occasions only Substance/Drug Use: never Adopted: No Caregiver/support person: No Lives independently: Yes Household members: spouse Marital status: Number of children: 2 service: Yes branch: [employer] Current occupational status: retired Data Anesthesia Cardiac Studies: Echocardiogram Ultrasound 09/25/20 Sestamibi Stress Test (Cardiology) 09/14/20
--- NOTE | 2025-05-25 08:19 | W.PM.OPSUD ---
Surgery/Procedure H&P Update DATE OF PROCEDURE: May 25, 2025 DATE H&P PERFORMED: 05/05/25 H&P UPDATE INFORMATION: I have reviewed H&P completed within last 30 days, I have examined patient prior to procedure and No changes to prior documentation PREOP DIAGNOSIS: Screening colonoscopy PLANNED PROCEDURE: Operation Date: 05/25/25 08:30 Proposed Procedures p Colonoscopy [id number] G0121 Z12.11(Not Applicable) - Deep Stewart MD
--- NOTE | 2025-05-25 08:35 | SUR.OPER ---
cecum timee [id number]
[2025-05-25 08:36] VITALS: BP 105/50; PULSE 63; RESP 21; TEMP 36.3; O2SAT 95
[2025-05-25 08:55] VITALS: BP 111/57; PULSE 60; RESP 19; O2SAT 99
--- NOTE | 2025-05-25 09:20 | ANE.PACU2 ---
Inpatient post-anesthesia follow up: Airway intact: Yes Vital signs: Temperature 97.3 F Pulse Rate 60 Respiratory Rate 19 Blood Pressure 111/57 Pulse Oximetry 99 Oxygen Delivery Me thod Room Air Oxygen Flow Rate 2 Fraction of Inspir ed Oxygen Hydration adequate: Yes Nausea and vomiting: No Pain level: 1 Mental status: Baseline
== END 2025-05-25 09:20 | disposition home or self-care (01) ==
PROVIDERS: PCP Family Medicine; Visit Provider Student in an Organized Health Care Education/Training Program
PROC: 0DJD8ZZ Inspection of Lower Intestinal Tract, Via Natural or Artificial Opening Endoscopic (ICD-10-PCS; CPT 45378; principal; 2025-05-25 08:30)
DX: Z12.11 Encounter for screening for malignant neoplasm of colon (principal); K57.30 Diverticulosis of large intestine without perforation or abscess without bleeding; I10 Essential (primary) hypertension; E11.9 Type 2 diabetes mellitus without complications; Z86.73 Personal history of transient ischemic attack (TIA), and cerebral infarction without residual deficits; Z79.82 Long term (current) use of aspirin; Z79.84 Long term (current) use of oral hypoglycemic drugs
CPT/HCPCS: 36416; 82962; G0121; J2704; J7030; J9999